=== PATIENT | female | born 1960 | race Two or more races ===

== ENCOUNTER → 2021-05-06 | Outpatient (CLI) | payer MEDICAID, MEDICARE ==
[2021-05-06 10:27] LABS: INR 4.08 (0.9-1.15)
== END | disposition home or self-care (01) ==
LOC: LAB 08:15
PROVIDERS: ATTEND Internal Medicine
DX: I38 Endocarditis, valve unspecified (principal); Z79.01 Long term (current) use of anticoagulants
CPT/HCPCS: 36415; 85610

== ENCOUNTER → 2021-05-23 | Outpatient (CLI) | payer MEDICARE, MEDICAID ==
[2021-05-23 10:15] LABS: INR 4.05 (0.9-1.15)
== END | disposition home or self-care (01) ==
LOC: LAB 09:11
PROVIDERS: ATTEND Internal Medicine
DX: I38 Endocarditis, valve unspecified (principal); Z79.01 Long term (current) use of anticoagulants
CPT/HCPCS: 36415; 85610

== ENCOUNTER 2021-05-28 00:55 | Emergency (ER) | payer MEDICARE, MEDICAID ==
[~2021-05-28] VITALS: Ht 160 cm; Wt 64.9 kg
[2021-05-28 01:45] LABS: Basophils # (auto) 0.1 10 ^3/uL (0-0.2); Basophils % (auto) 0.8 % (0.0-2.0); Eosinophils # (auto) 0.1 10 ^3/uL (0-0.8); Eosinophils % (auto) 1.3 % (0.0-7.0); Hematocrit 41.4 % (36.0-46.0); Lymphocytes # (auto) 2.4 10 ^3/uL (0.4-5.4); Lymphocytes % (auto) 31.1 % (10.0-50.0); Mean Corpuscular Hemoglobin 29.7 pg (28.0-32.0); Mean Corpuscular Hgb Conc. 33.8 g/dL (32.0-36.0); Monocytes # (auto) 0.5 10 ^3/uL (0-1.3); Monocytes % (auto) 6.1 % (0.0-12.0); Neutrophils # (auto) 4.7 10 ^3/uL (1.6-8.6); Neutrophils % (auto) 60.7 % (37.0-80.0); Nucleated Red Blood Cells % 0.2 %; Red Cell Distribution Width 13.8 % (11.8-14.3); White Blood Cell 7.8 10^3/uL (4.4-10.8)
[2021-05-28 01:57] LABS: INR 1.11 (0.9-1.15); Partial Thromboplastin Time 28.2 sec (23.6-33.0)
[2021-05-28 01:58] LABS: Albumin 3.8 g/dL (3.4-5.0); BUN/Creatinine Ratio 21.6; Calcium 8.5 mg/dL (8.5-10.1); Potassium 3.8 mmol/L (3.5-5.1)
[2021-05-28 02:03] LABS: Bilirubin, Total 0.4 mg/dL (0.2-1.0); Total Protein 7.8 g/dL (6.4-8.2)
[2021-05-28] MEDS ORDERED: ACETAMINOPHEN 500 MG TAB PO ONE (04:45)
[2021-05-28 05:02] VITALS: BP 128/59
[2021-05-28 05:11] LABS: Urine Bacteria FEW /hpf (None Seen); Urine Blood Negative /uL (Negative); Urine Mucus FEW (None Seen); Urine WBC 6 /hpf (0 - 5)
== END 2021-05-28 06:15 | disposition home or self-care (01) ==
LOC: ER 00:55
DX: R51.9 Headache, unspecified (principal); Z86.73 Personal history of transient ischemic attack (TIA), and cerebral infarction without residual deficits
CPT/HCPCS: 36415; 70450; 80053; 81001; 84484; 85025; 85610; 85730; 93005

== ENCOUNTER → 2021-06-03 | Outpatient (CLI) | payer MEDICARE, MEDICAID ==
[2021-06-03 07:59] LABS: Basophils # (auto) 0 10 ^3/uL (0-0.2); Basophils % (auto) 0.8 % (0.0-2.0); Eosinophils # (auto) 0.1 10 ^3/uL (0-0.8); Eosinophils % (auto) 1.6 % (0.0-7.0); Hematocrit 40.1 % (36.0-46.0); Hemoglobin 13.7 g/dL (12.2-16.2); Lymphocytes % (auto) 37.9 % (10.0-50.0); Mean Corpuscular Hemoglobin 29.5 pg (28.0-32.0); Mean Corpuscular Volume 86.8 fL (80.0-100.0); Monocytes # (auto) 0.3 10 ^3/uL (0-1.3); Monocytes % (auto) 6.1 % (0.0-12.0); Neutrophils # (auto) 2.9 10 ^3/uL (1.6-8.6); Neutrophils % (auto) 53.6 % (37.0-80.0); Nucleated Red Blood Cells % 0.1 %; Red Blood Cells 4.62 10^6/uL (4.0-5.20); Red Cell Distribution Width 13.6 % (11.8-14.3); White Blood Cell 5.4 10^3/uL (4.4-10.8)
[2021-06-03 08:08] LABS: Urine Bacteria NONE SEEN /hpf (None Seen); Urine Blood Negative /uL (Negative); Urine Mucus FEW (None Seen); Urine Specific Gravity 1.015 (1.001-1.035); Urine WBC 1 /hpf (0 - 5)
[2021-06-03 08:34] LABS: INR 1.75 (0.9-1.15)
[2021-06-03 09:14] LABS: Potassium 4.5 mmol/L (3.5-5.1)
[2021-06-03 09:25] LABS: Albumin 4.1 g/dL (3.4-5.0); BUN/Creatinine Ratio 17.5; Bilirubin, Total 0.6 mg/dL (0.2-1.0); Calcium 9.5 mg/dL (8.5-10.1); Total Protein 8.2 g/dL (6.4-8.2)
== END | disposition home or self-care (01) ==
LOC: LAB 07:24
PROVIDERS: ATTEND Student in an Organized Health Care Education/Training Program
DX: R73.9 Hyperglycemia, unspecified (principal); I10 Essential (primary) hypertension; D68.59 Other primary thrombophilia
CPT/HCPCS: 36415; 80053; 80061; 81001; 83036; 84443; 85025; 85610

== ENCOUNTER → 2021-06-07 | Outpatient (CLI) | payer MEDICARE, MEDICAID | END | disposition home or self-care (01) | LOC: XYW 13:38 | PROVIDERS: ATTEND Internal Medicine | DX: I08.0 Rheumatic disorders of both mitral and aortic valves (principal); I10 Essential (primary) hypertension | CPT/HCPCS: 93306 ==

== ENCOUNTER → 2021-06-15 | Outpatient (CLI) | payer MEDICARE, MEDICAID | END | disposition home or self-care (01) | LOC: XYW 10:04 | PROVIDERS: ATTEND Student in an Organized Health Care Education/Training Program | DX: I65.21 Occlusion and stenosis of right carotid artery (principal); Z86.73 Personal history of transient ischemic attack (TIA), and cerebral infarction without residual deficits | CPT/HCPCS: 93886 ==

== ENCOUNTER → 2021-08-05 | Outpatient (CLI) | payer MEDICARE, MEDICAID ==
[~2021-08-05] MED LIST: ACET-1156 PO; ASCO250T10 PO; CHOL400C15 PO; FERR-20 PO; WARF2TAB49 PO; WARF4TAB33 PO
== END | disposition home or self-care (01) ==
LOC: LAB 08:16
PROVIDERS: ATTEND Student in an Organized Health Care Education/Training Program
DX: M25.40 Effusion, unspecified joint (principal)
CPT/HCPCS: 86038; 86431

== ENCOUNTER 2021-08-12 06:48 | Inpatient (IN) | payer MEDICARE, MEDICAID ==
[2021-08-08 10:33] LABS: Basophils # (auto) 0.1 10 ^3/uL (0-0.2); Basophils % (auto) 1.3 % (0.0-2.0); Eosinophils # (auto) 0.1 10 ^3/uL (0-0.8); Hematocrit 39.3 % (36.0-46.0); Hemoglobin 13.3 g/dL (12.2-16.2); Lymphocytes # (auto) 2.1 10 ^3/uL (0.4-5.4); Lymphocytes % (auto) 34.3 % (10.0-50.0); Mean Corpuscular Hemoglobin 29.1 pg (28.0-32.0); Mean Corpuscular Hgb Conc. 33.9 g/dL (32.0-36.0); Mean Corpuscular Volume 85.8 fL (80.0-100.0); Monocytes # (auto) 0.5 10 ^3/uL (0-1.3); Monocytes % (auto) 7.5 % (0.0-12.0); Neutrophils # (auto) 3.4 10 ^3/uL (1.6-8.6); Neutrophils % (auto) 55.9 % (37.0-80.0); Red Blood Cells 4.58 10^6/uL (4.0-5.20); Red Cell Distribution Width 14.8 % (11.8-14.3)
[2021-08-08 10:51] LABS: Potassium 4.7 mmol/L (3.5-5.1)
[2021-08-08 11:07] LABS: Albumin 3.8 g/dL (3.4-5.0); Bilirubin, Total 0.6 mg/dL (0.2-1.0); Calcium 8.9 mg/dL (8.5-10.1)
[2021-08-08 11:17] LABS: Partial Thromboplastin Time 51.4 sec (23.6-33.0)
[2021-08-08 13:10] LABS: INR 4.6 (0.9-1.15)
[2021-08-10 12:03] LABS: Basophils # (auto) 0.1 10 ^3/uL (0-0.2); Basophils % (auto) 0.8 % (0.0-2.0); Eosinophils # (auto) 0.1 10 ^3/uL (0-0.8); Eosinophils % (auto) 1.4 % (0.0-7.0); Hematocrit 38.5 % (36.0-46.0); Hemoglobin 12.7 g/dL (12.2-16.2); Lymphocytes # (auto) 2.2 10 ^3/uL (0.4-5.4); Lymphocytes % (auto) 34.2 % (10.0-50.0); Mean Corpuscular Hemoglobin 28.4 pg (28.0-32.0); Mean Corpuscular Hgb Conc. 33.1 g/dL (32.0-36.0); Mean Corpuscular Volume 85.8 fL (80.0-100.0); Monocytes # (auto) 0.4 10 ^3/uL (0-1.3); Monocytes % (auto) 5.6 % (0.0-12.0); Neutrophils # (auto) 3.7 10 ^3/uL (1.6-8.6); Nucleated Red Blood Cells % 0.1 %; Red Blood Cells 4.48 10^6/uL (4.0-5.20); White Blood Cell 6.3 10^3/uL (4.4-10.8)
[2021-08-10 12:13] LABS: INR 2.46 (0.9-1.15); Partial Thromboplastin Time 40.4 sec (23.6-33.0)
[2021-08-10 12:34] LABS: Potassium 4.5 mmol/L (3.5-5.1)
[2021-08-10 12:40] LABS: Albumin 3.5 g/dL (3.4-5.0); Calcium 8.8 mg/dL (8.5-10.1)
[2021-08-10 12:43] LABS: Bilirubin, Total 0.6 mg/dL (0.2-1.0); Total Protein 7.3 g/dL (6.4-8.2)
[2021-08-12] VITALS (14 sets, daily range): BP systolic 100–142; BP diastolic 52–74
[~2021-08-12] VITALS: Ht 154.9 cm; Wt 140.0 kg
[2021-08-12] MEDS ORDERED: fentaNYL CITRATE 100 MCG/2 ML VL ONE (07:38)
[2021-08-12] MEDS ORDERED: ANGIOMAX 250 MG VIAL IV ONE (07:38)
[2021-08-12] MEDS ORDERED: HEPARIN IN NS 1000Units/500mL 1,500 ML ONE (07:39)
[2021-08-12] MEDS ORDERED: LIDOCAINE 2%HCL (LOCAL ANESTH.) INJ 10ml MDV ONE (07:39)
[2021-08-12] MEDS ORDERED: SODIUM CHL 0.9% 0 ML ONE (07:39)
[2021-08-12] MEDS ORDERED: IODIXANOL 320MG/ML 100ML BTL IV ONE ×3 (07:42→08:08)
[2021-08-12] MEDS ORDERED: GLYCOPYRROLATE 0.2 MG/ML 1ML VIAL ONE (07:45)
[2021-08-12] MEDS ORDERED: MIDAZOLAM HCL 2MG/2ML 2ml VIAL (1mg/ml) ONE (08:36)
[2021-08-12] MEDS ORDERED: hydrALAZINE HCL 20 MG/ML VL ONE (08:45)
[2021-08-12] MEDS ORDERED: HYDROmorphone HCL 2 MG/ML VL/or syr IV ONE (09:15)
[2021-08-12] MEDS ORDERED: HYDROmorphone HCL 2 MG/ML VL/or syr ONE (09:16)
[2021-08-12] MEDS ORDERED: NITROGLYCERIN 0.4 MG SL TAB SL PRN (10:00)
[2021-08-12] MEDS ORDERED: MORPHINE SULFATE INJ 2 MG/ml SYRG IV PRN (10:00)
[2021-08-12 11:17] LABS: INR 1.32 (0.9-1.15); Partial Thromboplastin Time 30.1 sec (23.6-33.0)
[2021-08-12] MEDS ORDERED: WARFARIN SODIUM 5 MG TAB PO ONE (11:45)
[2021-08-12] MEDS ORDERED: WARF4TAB33 PO ×2 (11:54)
[2021-08-12] MEDS: SODIUM CHLOR 0.9% PF (SALINE LOCK) 10ML VIAL/SYR IV SCH ×2 (14:00→22:00)
[2021-08-12] MEDS: ENOXAPARIN SOD 80 MG/0.8ML SYRINGE SC SCH (21:22)
[2021-08-13] MEDS: SODIUM CHLOR 0.9% PF (SALINE LOCK) 10ML VIAL/SYR IV SCH ×3 (06:25→21:15)
[2021-08-13 07:51] LABS: INR 1.31 (0.9-1.15); Partial Thromboplastin Time 34.2 sec (23.6-33.0)
[2021-08-13 08:10] VITALS: BP 140/72
[2021-08-13 09:00] VITALS: BP 140/72
[2021-08-13] MEDS: ENOXAPARIN SOD 80 MG/0.8ML SYRINGE SC SCH ×2 (09:16→21:15)
[2021-08-13 13:00] VITALS: BP 120/69
[2021-08-13 13:08] LABS: Basophils # (auto) 0.1 10 ^3/uL (0-0.2); Basophils % (auto) 0.8 % (0.0-2.0); Eosinophils # (auto) 0.1 10 ^3/uL (0-0.8); Eosinophils % (auto) 1.2 % (0.0-7.0); Hematocrit 36.3 % (36.0-46.0); Hemoglobin 12.1 g/dL (12.2-16.2); Lymphocytes # (auto) 2.5 10 ^3/uL (0.4-5.4); Lymphocytes % (auto) 35.6 % (10.0-50.0); Mean Corpuscular Hemoglobin 28.7 pg (28.0-32.0); Mean Corpuscular Hgb Conc. 33.2 g/dL (32.0-36.0); Mean Corpuscular Volume 86.3 fL (80.0-100.0); Monocytes # (auto) 0.4 10 ^3/uL (0-1.3); Monocytes % (auto) 6.3 % (0.0-12.0); Neutrophils # (auto) 3.9 10 ^3/uL (1.6-8.6); Neutrophils % (auto) 56.1 % (37.0-80.0); Nucleated Red Blood Cells % 0.1 %; Red Blood Cells 4.21 10^6/uL (4.0-5.20); Red Cell Distribution Width 14.8 % (11.8-14.3)
[2021-08-13 13:11] LABS: Albumin 3.2 g/dL (3.4-5.0); Calcium 8.3 mg/dL (8.5-10.1)
[2021-08-13 13:16] LABS: BUN/Creatinine Ratio 18.9; Bilirubin, Total 0.8 mg/dL (0.2-1.0); Total Protein 6.8 g/dL (6.4-8.2)
[2021-08-13 16:34] LABS: INR 1.35 (0.9-1.15); Partial Thromboplastin Time 34.9 sec (23.6-33.0)
[2021-08-13 17:00] VITALS: BP 155/76
[2021-08-13] MEDS ORDERED: WARFARIN SODIUM 5 MG TAB PO ONE ×2 (17:00→17:33)
[2021-08-13] MEDS ORDERED: WARFARIN SODIUM 2 MG TAB PO SCH (17:00)
[2021-08-13 22:00] VITALS: BP 124/64
[2021-08-14 05:00] VITALS: BP 125/65
[2021-08-14 05:33] LABS: INR 1.54 (0.9-1.15); Partial Thromboplastin Time 39.4 sec (23.6-33.0)
[2021-08-14] MEDS: SODIUM CHLOR 0.9% PF (SALINE LOCK) 10ML VIAL/SYR IV SCH ×3 (06:08→22:16)
[2021-08-14 08:00] VITALS: BP 140/72
[2021-08-14 09:00] VITALS: BP 152/72
[2021-08-14] MEDS: ENOXAPARIN SOD 80 MG/0.8ML SYRINGE SC SCH ×2 (11:52→22:16)
[2021-08-14] MEDS: ACETAMINOPHEN 325 MG TAB PO PRN ×2 (11:53→21:39)
[2021-08-14 17:00] VITALS: BP 136/87
[2021-08-14 22:00] VITALS: BP 158/75
[2021-08-15] VITALS (7 sets, daily range): BP systolic 122–142; BP diastolic 61–78
[2021-08-15] MEDS: SODIUM CHLOR 0.9% PF (SALINE LOCK) 10ML VIAL/SYR IV SCH ×3 (05:53→21:20)
[2021-08-15 06:32] LABS: INR 1.67 (0.9-1.15); Partial Thromboplastin Time 40.8 sec (23.6-33.0)
[2021-08-15] MEDS ORDERED: WARFARIN SODIUM 5 MG TAB PO ONE (10:00)
[2021-08-15] MEDS: ACETAMINOPHEN 325 MG TAB PO PRN (10:01)
[2021-08-15] MEDS: ENOXAPARIN SOD 80 MG/0.8ML SYRINGE SC SCH (10:02)
[2021-08-15] MEDS ORDERED: MORPHINE SULFATE INJ 2 MG/ml SYRG IV ONE (15:30)
[2021-08-15] MEDS: MORPHINE SULFATE INJ 2 MG/ml SYRG IV PRN ×3 (15:35→20:55)
[2021-08-15] MEDS ORDERED: IOHEXOL 350 MG/ML 100ML IJ ONE (16:21)
[2021-08-16] MEDS: ACETAMINOPHEN 325 MG TAB PO PRN (01:12)
[2021-08-16 05:00] VITALS: BP 92/57
[2021-08-16 05:35] LABS: Basophils # (auto) 0 10 ^3/uL (0-0.2); Basophils % (auto) 0.6 % (0.0-2.0); Eosinophils # (auto) 0.1 10 ^3/uL (0-0.8); Eosinophils % (auto) 0.9 % (0.0-7.0); Hematocrit 32.1 % (36.0-46.0); Hemoglobin 10.7 g/dL (12.2-16.2); Lymphocytes # (auto) 2.8 10 ^3/uL (0.4-5.4); Lymphocytes % (auto) 33.6 % (10.0-50.0); Mean Corpuscular Hemoglobin 28.8 pg (28.0-32.0); Mean Corpuscular Hgb Conc. 33.4 g/dL (32.0-36.0); Monocytes # (auto) 0.6 10 ^3/uL (0-1.3); Monocytes % (auto) 6.8 % (0.0-12.0); Neutrophils # (auto) 4.9 10 ^3/uL (1.6-8.6); Neutrophils % (auto) 58.1 % (37.0-80.0); Nucleated Red Blood Cells % 0.1 %; Red Blood Cells 3.73 10^6/uL (4.0-5.20); Red Cell Distribution Width 14.9 % (11.8-14.3); White Blood Cell 8.4 10^3/uL (4.4-10.8)
[2021-08-16 05:51] LABS: BUN/Creatinine Ratio 19.4; Calcium 8.3 mg/dL (8.5-10.1); Potassium 3.9 mmol/L (3.5-5.1)
[2021-08-16 05:58] LABS: INR 1.33 (0.9-1.15); Partial Thromboplastin Time 32.3 sec (23.6-33.0)
[2021-08-16] MEDS: SODIUM CHLOR 0.9% PF (SALINE LOCK) 10ML VIAL/SYR IV SCH ×3 (06:20→21:37)
[2021-08-16 07:30] VITALS: BP 103/60
[2021-08-16] MEDS ORDERED: THROMBIN (BOVINE) 5000 UNIT SOL VIAL TP ONE (07:30)
[2021-08-16] MEDS ORDERED: KETOROLAC TROMETH 30 MG/ML 1ML VIAL ONE (08:09)
[2021-08-16] MEDS ORDERED: HYDROmorphone HCL 2 MG/ML VL/or syr ONE (08:09)
[2021-08-16] MEDS ORDERED: HYDROmorphone HCL 2 MG/ML VL/or syr IV ONE (08:15)
[2021-08-16] MEDS ORDERED: KETOROLAC TROMETH 30 MG/ML 1ML VIAL IV ONE (08:15)
[2021-08-16 09:30] VITALS: BP 135/64
[2021-08-16] MEDS ORDERED: ONDANSETRON HCL 4 MG/2 ML VIAL IV ONE (10:10)
[2021-08-16] MEDS ORDERED: ONDANSETRON HCL 4 MG/2 ML VIAL ONE (10:10)
[2021-08-16 10:30] VITALS: BP 142/58
[2021-08-16] MEDS ORDERED: ceFAZolin 1GM/50ML 100 ML IV ONE (10:55)
[2021-08-16] MEDS ORDERED: fentaNYL CITRATE 100 MCG/2 ML VL ONE (12:05)
[2021-08-16] MEDS ORDERED: MIDAZOLAM HCL 2MG/2ML 2ml VIAL (1mg/ml) ONE (12:06)
[2021-08-16] MEDS ORDERED: PROPOFOL 10 MG/ML 20 ML IV ONE (12:10)
[2021-08-16] MEDS ORDERED: LIDOCAINE 2% (LOCAL ANESTH.) PF 5ml SDV ONE (12:10)
[2021-08-16] MEDS ORDERED: ONDANSETRON HCL 4 MG/2 ML VIAL IV PRN (13:00)
[2021-08-16] MEDS ORDERED: GELATIN 1 SPONGE SIZE 50 TOP ONE (13:04)
[2021-08-16] MEDS ORDERED: THROMBIN (BOVINE) 5000 UNIT SOL VIAL ONE (13:04)
[2021-08-16] MEDS: HYDROmorphone HCL 2 MG/ML VL/or syr IV PRN ×2 (13:51→14:07)
[2021-08-16 16:37] VITALS: BP 146/75
[2021-08-16] MEDS ORDERED: WARFARIN SODIUM 5 MG TAB PO ONE (20:00)
[2021-08-16 21:11] VITALS: BP 101/49
[2021-08-16] MEDS: ATORVASTATIN 20 MG TAB PO SCH (21:37)
[2021-08-16] MEDS: MORPHINE SULFATE INJ 2 MG/ml SYRG IV PRN (21:38)
[2021-08-17] MEDS: MORPHINE SULFATE INJ 2 MG/ml SYRG IV PRN ×3 (04:59→20:11)
[2021-08-17 05:00] VITALS: BP 101/55
[2021-08-17] MEDS: SODIUM CHLOR 0.9% PF (SALINE LOCK) 10ML VIAL/SYR IV SCH ×3 (05:31→21:25)
[2021-08-17 08:10] LABS: Basophils # (auto) 0 10 ^3/uL (0-0.2); Basophils % (auto) 0.5 % (0.0-2.0); Eosinophils # (auto) 0.1 10 ^3/uL (0-0.8); Eosinophils % (auto) 0.9 % (0.0-7.0); Hematocrit 25.6 % (36.0-46.0); Lymphocytes % (auto) 21.7 % (10.0-50.0); Mean Corpuscular Hemoglobin 29.4 pg (28.0-32.0); Mean Corpuscular Hgb Conc. 34.1 g/dL (32.0-36.0); Mean Corpuscular Volume 86.3 fL (80.0-100.0); Monocytes # (auto) 0.6 10 ^3/uL (0-1.3); Monocytes % (auto) 6.6 % (0.0-12.0); Neutrophils # (auto) 6.6 10 ^3/uL (1.6-8.6); Neutrophils % (auto) 70.3 % (37.0-80.0); Red Blood Cells 2.97 10^6/uL (4.0-5.20); Red Cell Distribution Width 14.8 % (11.8-14.3); White Blood Cell 9.4 10^3/uL (4.4-10.8)
[2021-08-17 08:12] LABS: Hemoglobin 8.7 g/dL (12.2-16.2)
[2021-08-17 08:25] LABS: BUN/Creatinine Ratio 17.4; Calcium 7.8 mg/dL (8.5-10.1); Magnesium 2.3 mg/dL (1.6-2.6); Potassium 4.1 mmol/L (3.5-5.1)
[2021-08-17 08:27] LABS: INR 1.19 (0.9-1.15); Partial Thromboplastin Time 29.2 sec (23.6-33.0)
[2021-08-17 09:00] VITALS: BP 101/50
[2021-08-17] MEDS ORDERED: ONDANSETRON HCL 4 MG/2 ML VIAL IV PRN (10:15)
[2021-08-17] MEDS ORDERED: SUCCINYLCHOLINE 20mg/ml 100mg/5ml SYRINGE IV ONE (11:13)
[2021-08-17 13:00] VITALS: BP 97/52
[2021-08-17 17:00] VITALS: BP 106/54
[2021-08-17] MEDS ORDERED: WARFARIN SODIUM 2.5 MG TAB PO ONE (17:00)
[2021-08-17 21:00] VITALS: BP 109/51
[2021-08-17] MEDS: ATORVASTATIN 20 MG TAB PO SCH (21:25)
[2021-08-18 05:00] VITALS: BP 87/47
[2021-08-18 05:37] LABS: Hematocrit 25.2 % (36.0-46.0); Hemoglobin 8.8 g/dL (12.2-16.2)
[2021-08-18 05:54] LABS: INR 1.48 (0.9-1.15); Partial Thromboplastin Time 33.6 sec (23.6-33.0)
[2021-08-18] MEDS: SODIUM CHLOR 0.9% PF (SALINE LOCK) 10ML VIAL/SYR IV SCH ×3 (06:02→22:21)
[2021-08-18 09:00] VITALS: BP 133/58
[2021-08-18 09:25] VITALS: BP 143/64
[2021-08-18] MEDS ORDERED: ENOXAPARIN SOD 80 MG/0.8ML SYRINGE SC SCH (10:05)
[2021-08-18 12:35] VITALS: BP 109/58
[2021-08-18 14:25] LABS: Hematocrit 25.9 % (36.0-46.0); Hemoglobin 8.8 g/dL (12.2-16.2)
[2021-08-18] MEDS ORDERED: WARFARIN SODIUM 2.5 MG TAB PO ONE (17:00)
[2021-08-18 17:06] VITALS: BP 99/55
[2021-08-18 18:16] LABS: Hematocrit 30.1 % (36.0-46.0)
[2021-08-18 22:00] VITALS: BP 107/56
[2021-08-18] MEDS: ATORVASTATIN 20 MG TAB PO SCH (22:21)
[2021-08-19 05:00] VITALS: BP 102/49
[2021-08-19] MEDS: SODIUM CHLOR 0.9% PF (SALINE LOCK) 10ML VIAL/SYR IV SCH ×3 (05:28→22:05)
[2021-08-19 06:54] LABS: Basophils # (auto) 0 10 ^3/uL (0-0.2); Basophils % (auto) 0.6 % (0.0-2.0); Eosinophils # (auto) 0.1 10 ^3/uL (0-0.8); Eosinophils % (auto) 1.6 % (0.0-7.0); Hemoglobin 8.5 g/dL (12.2-16.2); Lymphocytes % (auto) 24.9 % (10.0-50.0); Mean Corpuscular Hemoglobin 29.7 pg (28.0-32.0); Mean Corpuscular Volume 87.3 fL (80.0-100.0); Monocytes # (auto) 0.5 10 ^3/uL (0-1.3); Monocytes % (auto) 6.7 % (0.0-12.0); Neutrophils # (auto) 5.3 10 ^3/uL (1.6-8.6); Neutrophils % (auto) 66.2 % (37.0-80.0); Red Blood Cells 2.86 10^6/uL (4.0-5.20); Red Cell Distribution Width 14.8 % (11.8-14.3)
[2021-08-19 06:55] LABS: INR 1.66 (0.9-1.15); Partial Thromboplastin Time 35.1 sec (23.6-33.0)
[2021-08-19 08:10] VITALS: BP 124/90
[2021-08-19 09:00] VITALS: BP 105/43
[2021-08-19] MEDS ORDERED: ENOXAPARIN SOD 80 MG/0.8ML SYRINGE SC SCH (10:00)
[2021-08-19 12:15] VITALS: BP 107/57
[2021-08-19] MEDS: ACETAMINOPHEN 325 MG TAB PO PRN ×2 (13:43→22:16)
[2021-08-19 17:00] VITALS: BP 103/52
[2021-08-19 22:00] VITALS: BP 109/56
[2021-08-19] MEDS: ATORVASTATIN 20 MG TAB PO SCH (22:05)
[2021-08-20] MEDS: MORPHINE SULFATE INJ 2 MG/ml SYRG IV PRN (03:58)
[2021-08-20 05:00] VITALS: BP 97/48
[2021-08-20 05:44] LABS: Basophils # (auto) 0 10 ^3/uL (0-0.2); Eosinophils # (auto) 0.2 10 ^3/uL (0-0.8); Lymphocytes # (auto) 1.6 10 ^3/uL (0.4-5.4); Mean Corpuscular Hgb Conc. 34.6 g/dL (32.0-36.0); Monocytes # (auto) 0.4 10 ^3/uL (0-1.3); Neutrophils # (auto) 4.1 10 ^3/uL (1.6-8.6); Nucleated Red Blood Cells % 0.1 %; White Blood Cell 6.3 10^3/uL (4.4-10.8)
[2021-08-20 05:46] LABS: Basophils % (auto) 0.5 % (0.0-2.0); Eosinophils % (auto) 2.5 % (0.0-7.0); Hematocrit 23.9 % (36.0-46.0); Hemoglobin 8.2 g/dL (12.2-16.2); Lymphocytes % (auto) 25.3 % (10.0-50.0); Mean Corpuscular Hemoglobin 30.3 pg (28.0-32.0); Mean Corpuscular Volume 87.6 fL (80.0-100.0); Monocytes % (auto) 6.5 % (0.0-12.0); Neutrophils % (auto) 65.2 % (37.0-80.0); Red Blood Cells 2.72 10^6/uL (4.0-5.20); Red Cell Distribution Width 14.5 % (11.8-14.3)
[2021-08-20] MEDS: SODIUM CHLOR 0.9% PF (SALINE LOCK) 10ML VIAL/SYR IV SCH ×2 (05:50→13:15)
[2021-08-20 07:30] VITALS: BP 173/77
[2021-08-20 09:00] VITALS: BP 107/53
[2021-08-20] MEDS: ACETAMINOPHEN 325 MG TAB PO PRN (12:06)
[2021-08-20 12:45] VITALS: BP 115/49
[2021-08-20] MEDS ORDERED: WARFARIN SODIUM 2.5 MG TAB PO ONE (13:16)
[2021-08-20 13:36] VITALS: BP 173/77
== END 2021-08-20 14:30 | disposition home or self-care (01) | DRG 982 ==
LOC: CATH 06:48 → TELE 09:46 → TELE-WESTW 16:36
PROVIDERS: ADMIT Internal Medicine; ATTEND Internal Medicine Nephrology
PROC: 4A023N8 Measurement of Cardiac Sampling and Pressure, Bilateral, Percutaneous Approach (ICD-10-PCS; principal; 2021-08-12)
PROC: B3101ZZ Fluoroscopy of Thoracic Aorta using Low Osmolar Contrast (ICD-10-PCS; 2021-08-12)
PROC: B2111ZZ Fluoroscopy of Multiple Coronary Arteries using Low Osmolar Contrast (ICD-10-PCS; 2021-08-12)
PROC: 04CK0ZZ Extirpation of Matter from Right Femoral Artery, Open Approach (ICD-10-PCS; 2021-08-16)
DX: D68.9 Coagulation defect, unspecified (principal); I97.630 Postprocedural hematoma of a circulatory system organ or structure following a cardiac catheterization; I69.354 Hemiplegia and hemiparesis following cerebral infarction affecting left non-dominant side; T45.515A Adverse effect of anticoagulants, initial encounter; Z95.1 Presence of aortocoronary bypass graft; I65.21 Occlusion and stenosis of right carotid artery; I72.4 Aneurysm of artery of lower extremity; D64.9 Anemia, unspecified; E78.5 Hyperlipidemia, unspecified; I10 Essential (primary) hypertension; Z20.822 Contact with and (suspected) exposure to COVID-19; Z79.01 Long term (current) use of anticoagulants; Z95.2 Presence of prosthetic heart valve; Q24.9 Congenital malformation of heart, unspecified; S70.11XA Contusion of right thigh, initial encounter; X58.XXXA Exposure to other specified factors, initial encounter; Y93.89 Activity, other specified; Y92.238 Other place in hospital as the place of occurrence of the external cause; Y99.8 Other external cause status
CPT/HCPCS: 36415; 70498; 71275; 72192; 75605; 80048; 80053; 80061; 83735; 85014; 85018; 85025; 85610; 85730; 86850; 86900; 86901; 86920; 93460; 93926; 99152; C1751; G0378; J0690; J1885; J2001; J2250; J2405; J2704; Q9967

== ENCOUNTER → 2021-12-06 | Outpatient (CLI) | payer MEDICARE, MEDICAID ==
[~2021-12-06] MED LIST changes: -ASCO250T10 PO; -WARF2TAB49 PO
== END | disposition home or self-care (01) ==
LOC: LAB 09:41
PROVIDERS: ATTEND Internal Medicine
DX: R94.4 Abnormal results of kidney function studies (principal)
CPT/HCPCS: 36415; 82565; 84520

== ENCOUNTER → 2021-12-08 | Outpatient (CLI) | payer MEDICARE, MEDICAID ==
[~2021-12-08] MED LIST changes: +IOHEXOL 350 MG/ML 100ML IJ ONE; +NITROGLYCERIN 0.4 MG SL TAB SL ONE
[2021-12-08 09:30] VITALS: BP 133/69
[2021-12-08 10:43] VITALS: BP 138/60
== END | disposition home or self-care (01) ==
LOC: Rad HDHVI 09:10
PROVIDERS: ATTEND Internal Medicine
DX: I25.10 Atherosclerotic heart disease of native coronary artery without angina pectoris (principal); R07.89 Other chest pain
CPT/HCPCS: 75574; G0463; Q9967

== ENCOUNTER 2022-07-29 09:14 | Emergency (ER) | payer MEDICARE, MEDICAID ==
[~2022-07-29] VITALS: Ht 160 cm; Wt 59.0 kg
[~2022-07-29 09:14] MED LIST changes: -IOHEXOL 350 MG/ML 100ML IJ ONE; -NITROGLYCERIN 0.4 MG SL TAB SL ONE
[2022-07-29 10:05] LABS: Urine Bacteria NONE SEEN /hpf (None Seen); Urine Blood Negative /uL (Negative); Urine Mucus FEW (None Seen); Urine Specific Gravity 1.015 (1.001-1.035); Urine WBC 4 /hpf (0 - 5)
[2022-07-29 10:24] LABS: Basophils # (auto) 0.1 10 ^3/uL (0-0.2); Eosinophils # (auto) 0.1 10 ^3/uL (0-0.8); Hematocrit 37.4 % (36.0-46.0); Hemoglobin 12.1 g/dL (12.2-16.2); Lymphocytes # (auto) 1.8 10 ^3/uL (0.4-5.4); Mean Corpuscular Hgb Conc. 32.4 g/dL (32.0-36.0)
[2022-07-29 10:26] LABS: Eosinophils % (auto) 1.7 % (0.0-7.0); Lymphocytes % (auto) 26.2 % (10.0-50.0); Monocytes # (auto) 0.3 10 ^3/uL (0-1.3); Monocytes % (auto) 4.9 % (0.0-12.0); Neutrophils # (auto) 4.6 10 ^3/uL (1.6-8.6); Neutrophils % (auto) 66.2 % (37.0-80.0); Nucleated Red Blood Cells % 0.1 %; Red Blood Cells 4.85 10^6/uL (4.0-5.20); White Blood Cell 6.9 10^3/uL (4.4-10.8)
[2022-07-29 10:41] LABS: Albumin 3.9 g/dL (3.4-5.0); Calcium 8.7 mg/dL (8.5-10.1); Potassium 4.5 mmol/L (3.5-5.1)
[2022-07-29 10:46] LABS: BUN/Creatinine Ratio 19.8 (10.0-20.0); Bilirubin, Total 0.5 mg/dL (0.2-1.0); Total Protein 7.7 g/dL (6.4-8.2)
[2022-07-29] MEDS ORDERED: cefTRIAXone SOD 1,000 MG VL IM ONE (11:15)
[2022-07-29] MEDS ORDERED: metroNIDAZOLE 500 MG TAB PO ONE (11:15)
[2022-07-29] MEDS ORDERED: METR500T PO (11:16)
[2022-07-29 11:55] VITALS: BP 131/86
== END 2022-07-29 11:58 | disposition home or self-care (01) ==
LOC: ER 09:14
DX: K52.9 Noninfective gastroenteritis and colitis, unspecified (principal); N39.0 Urinary tract infection, site not specified
CPT/HCPCS: 36415; 74176; 80053; 81001; 84484; 85025; 96372; 99285; J0696

== ENCOUNTER → 2022-08-01 | Outpatient (CLI) | payer MEDICARE, MEDICAID ==
[~2022-08-01] MED LIST changes: +METR500T PO
[2022-08-01 07:31] LABS: Basophils # (auto) 0.1 10 ^3/uL (0-0.2); Eosinophils # (auto) 0.2 10 ^3/uL (0-0.8); Mean Corpuscular Volume 76.5 fL (80.0-100.0)
[2022-08-01 07:33] LABS: Eosinophils % (auto) 3.4 % (0.0-7.0); Hematocrit 36.1 % (36.0-46.0); Hemoglobin 11.8 g/dL (12.2-16.2); Lymphocytes # (auto) 2.4 10 ^3/uL (0.4-5.4); Lymphocytes % (auto) 38.8 % (10.0-50.0); Mean Corpuscular Hgb Conc. 32.6 g/dL (32.0-36.0); Monocytes # (auto) 0.4 10 ^3/uL (0-1.3); Monocytes % (auto) 6.5 % (0.0-12.0); Neutrophils # (auto) 3.2 10 ^3/uL (1.6-8.6); Neutrophils % (auto) 50.3 % (37.0-80.0); Red Blood Cells 4.71 10^6/uL (4.0-5.20); Red Cell Distribution Width 17.3 % (11.8-14.3); White Blood Cell 6.3 10^3/uL (4.4-10.8)
[2022-08-01 07:40] LABS: Urine Bacteria NONE SEEN /hpf (None Seen); Urine Blood Negative /uL (Negative); Urine Hyaline Cast FEW /lpf (0 - 2); Urine Mucus FEW (None Seen); Urine Specific Gravity 1.015 (1.001-1.035); Urine WBC 5 /hpf (0 - 5)
[2022-08-01 07:45] LABS: Albumin 3.6 g/dL (3.4-5.0); Potassium 4.9 mmol/L (3.5-5.1)
[2022-08-01 07:53] LABS: BUN/Creatinine Ratio 14.3 (10.0-20.0); Bilirubin, Total 0.4 mg/dL (0.2-1.0); Calcium 9.1 mg/dL (8.5-10.1); Total Protein 7.8 g/dL (6.4-8.2)
== END | disposition home or self-care (01) ==
LOC: LAB 07:03
PROVIDERS: ATTEND Student in an Organized Health Care Education/Training Program
DX: I10 Essential (primary) hypertension (principal); R73.9 Hyperglycemia, unspecified; N39.0 Urinary tract infection, site not specified
CPT/HCPCS: 36415; 80053; 80061; 81001; 83036; 84443; 85025; 87086

== ENCOUNTER → 2022-09-29 | Outpatient (CLI) | payer OTHER, MEDICAID ==
[~2022-09-29] MED LIST changes: -ACET-1156 PO; +ACET-1881 PO; -FERR-20 PO; +FERR325T24 PO; +WARF-112 PO; -WARF4TAB33 PO
[2022-09-29 10:35] LABS: INR 2.76 (0.9-1.15)
== END | disposition home or self-care (01) ==
LOC: LAB 10:03
PROVIDERS: ATTEND Student in an Organized Health Care Education/Training Program
DX: D68.69 Other thrombophilia (principal); Z79.01 Long term (current) use of anticoagulants
CPT/HCPCS: 36415; 85610

== ENCOUNTER 2022-10-03 15:08 | Emergency (ER) | payer OTHER, MEDICAID ==
[~2022-10-03] VITALS: Ht 160 cm; Wt 63.3 kg
[2022-10-03 15:51] LABS: Eosinophils # (auto) 0.1 10 ^3/uL (0-0.8); Eosinophils % (auto) 1.1 % (0.0-7.0); Lymphocytes # (auto) 2.6 10 ^3/uL (0.4-5.4); Monocytes # (auto) 0.3 10 ^3/uL (0-1.3); White Blood Cell 7.1 10^3/uL (4.4-10.8)
[2022-10-03 15:53] LABS: Basophils # (auto) 0 10 ^3/uL (0-0.2); Basophils % (auto) 0.6 % (0.0-2.0); Hematocrit 34.9 % (36.0-46.0); Hemoglobin 11.2 g/dL (12.2-16.2); Lymphocytes % (auto) 36.9 % (10.0-50.0); Mean Corpuscular Hemoglobin 24.4 pg (28.0-32.0); Mean Corpuscular Volume 76.1 fL (80.0-100.0); Monocytes % (auto) 4.9 % (0.0-12.0); Neutrophils % (auto) 56.5 % (37.0-80.0); Nucleated Red Blood Cells % 0.2 %; Red Blood Cells 4.59 10^6/uL (4.0-5.20); Red Cell Distribution Width 18.1 % (11.8-14.3)
[2022-10-03 16:13] LABS: Calcium 8.4 mg/dL (8.5-10.1); Potassium 4.3 mmol/L (3.5-5.1)
[2022-10-03 16:19] LABS: Albumin 3.6 g/dL (3.4-5.0); BUN/Creatinine Ratio 17.6 (10.0-20.0); Bilirubin, Total 0.4 mg/dL (0.2-1.0); Total Protein 7.9 g/dL (6.4-8.2)
[2022-10-03 16:23] LABS: INR 3.03 (0.9-1.15); Partial Thromboplastin Time 41.8 SEC (24.5-34.5)
[2022-10-03] MEDS ORDERED: TRAM50TA2 PO (16:51)
[2022-10-03 17:49] VITALS: BP 136/72
== END 2022-10-03 17:52 | disposition home or self-care (01) ==
LOC: ER 15:08
DX: R51.9 Headache, unspecified (principal); Z79.899 Other long term (current) drug therapy; Z86.73 Personal history of transient ischemic attack (TIA), and cerebral infarction without residual deficits; Z98.890 Other specified postprocedural states; Z79.01 Long term (current) use of anticoagulants
CPT/HCPCS: 36415; 70450; 80053; 85025; 85610; 85730; 93005

== ENCOUNTER → 2023-01-02 | Outpatient (CLI) | payer MEDICAID, OTHER ==
[~2023-01-02] MED LIST changes: +TRAM50TA2 PO
== END | disposition home or self-care (01) ==
LOC: RT 10:39
PROVIDERS: ATTEND Internal Medicine Pulmonary Disease
DX: J45.40 Moderate persistent asthma, uncomplicated (principal); R05.3 Chronic cough; R06.09 Other forms of dyspnea
CPT/HCPCS: 94060; 94727; 94729

== ENCOUNTER 2023-04-07 18:50 | Emergency (ER) | payer OTHER, MEDICAID ==
[~2023-04-07] VITALS: Ht 160 cm; Wt 69.0 kg
[2023-04-07] MEDS ORDERED: ONDANSETRON ODT 4 MG TAB PO ONE (19:45)
[2023-04-07] MEDS ORDERED: MORPHINE SULFATE 4 MG/ML SYR/VIAL IM ONE (19:45)
[2023-04-07 20:19] VITALS: BP 136/86; PULSE 80; RESP 20; TEMP 99.6; O2SAT 98
[2023-04-07] MEDS ORDERED: HYDR-4902 PO (21:01)
== END 2023-04-07 21:20 | disposition home or self-care (01) ==
LOC: ER 18:50
DX: M25.462 Effusion, left knee (principal); Z86.73 Personal history of transient ischemic attack (TIA), and cerebral infarction without residual deficits; Z98.890 Other specified postprocedural states; Z79.899 Other long term (current) drug therapy
CPT/HCPCS: 73562; 96372; 99283; J2270; Q0162

== ENCOUNTER → 2023-12-24 | Outpatient (CLI) | payer OTHER ==
[~2023-12-24] MED LIST changes: +HYDR-4902 PO
[2023-12-24 08:44] LABS: Urine Bacteria None Seen /hpf (None Seen)
[2023-12-24 08:59] LABS: Basophils # (auto) 0.1 10 ^3/uL (0-0.2); Eosinophils # (auto) 0.1 10 ^3/uL (0-0.8); Eosinophils % (auto) 1.5 % (0.0-7.0); Monocytes # (auto) 0.3 10 ^3/uL (0-1.3); Neutrophils # (auto) 3.4 10 ^3/uL (1.6-8.6); Red Cell Distribution Width 21.2 % (11.8-14.3); White Blood Cell 5.6 10^3/uL (4.4-10.8)
[2023-12-24 09:03] LABS: Basophils % (auto) 1.1 % (0.0-2.0); Hematocrit 30.6 % (36.0-46.0); Hemoglobin 9.2 g/dL (12.2-16.2); Lymphocytes # (auto) 1.7 10 ^3/uL (0.4-5.4); Lymphocytes % (auto) 30.8 % (10.0-50.0); Mean Corpuscular Hemoglobin 20.1 pg (28.0-32.0); Mean Corpuscular Hgb Conc. 30.1 g/dL (32.0-36.0); Mean Corpuscular Volume 66.8 fL (80.0-100.0); Monocytes % (auto) 5.7 % (0.0-12.0); Neutrophils % (auto) 60.9 % (37.0-80.0); Platelet Count (auto) 227 10^3/uL (140-450); Red Blood Cells 4.57 10^6/uL (4.0-5.20)
[2023-12-24 09:15] LABS: Alanine Aminotransferase 15 U/L (7-40); Albumin 4.4 g/dL (3.2-4.8); Alkaline Phosphatase 97 U/L (46-116); Anion Gap 7 (5-15); Aspartate Aminotransferase 23 U/L (13-40); BUN/Creatinine Ratio 16.8 (10.0-20.0); Blood Urea Nitrogen 17 mg/dL (9-23); Calcium 9.4 mg/dL (8.7-10.4); Carbon Dioxide 25 mmol/L (20-31); Chloride 110 mmol/L (98-107); Glucose 91 mg/dL (74-106); Potassium 4.4 mmol/L (3.5-5.1); Sodium 142 mmol/L (136-145)
[2023-12-24 09:16] LABS: Bilirubin, Total 0.5 mg/dL (0.2-1.0); Total Protein 7.4 g/dL (5.7-8.2)
[2023-12-24 09:17] LABS: Urine Blood TRACE /uL (Negative); Urine Clarity Clear (Clear); Urine Color Light-Yellow (Yellow); Urine Protein, UAD Negative (Negative); Urine Specific Gravity 1.014 (1.001-1.035); Urine Urobilinogen Normal (Negative); Urine WBC 6 /hpf (0 - 5); Urine pH 5.5 (5.0-9.0)
== END | disposition home or self-care (01) ==
LOC: LAB 08:20
PROVIDERS: ATTEND Student in an Organized Health Care Education/Training Program
DX: I10 Essential (primary) hypertension (principal); D64.9 Anemia, unspecified; E55.9 Vitamin D deficiency, unspecified; R73.9 Hyperglycemia, unspecified
CPT/HCPCS: 36415; 80053; 81001; 82306; 82607; 83036; 84443; 85025

== ENCOUNTER → 2024-01-25 | Outpatient (CLI) | payer OTHER ==
[2024-01-25 09:30] LABS: Basophils # (auto) 0 10 ^3/uL (0-0.2); Eosinophils # (auto) 0.1 10 ^3/uL (0-0.8); Hemoglobin 11.8 g/dL (12.2-16.2)
[2024-01-25 09:33] LABS: Basophils % (auto) 0.7 % (0.0-2.0); Eosinophils % (auto) 1.1 % (0.0-7.0); Hematocrit 37.2 % (36.0-46.0); Lymphocytes # (auto) 1.7 10 ^3/uL (0.4-5.4); Lymphocytes % (auto) 28.4 % (10.0-50.0); Mean Corpuscular Hemoglobin 22.3 pg (28.0-32.0); Mean Corpuscular Hgb Conc. 31.7 g/dL (32.0-36.0); Mean Corpuscular Volume 70.2 fL (80.0-100.0); Monocytes # (auto) 0.4 10 ^3/uL (0-1.3); Monocytes % (auto) 6.9 % (0.0-12.0); Neutrophils # (auto) 3.7 10 ^3/uL (1.6-8.6); Neutrophils % (auto) 62.9 % (37.0-80.0); Platelet Count (auto) 230 10^3/uL (140-450); White Blood Cell 5.9 10^3/uL (4.4-10.8)
[2024-01-25 09:34] LABS: Red Cell Distribution Width 26.7 % (11.8-14.3)
[2024-01-25 09:57] LABS: Urine Bacteria FEW /hpf (None Seen); Urine Blood TRACE /uL (Negative); Urine Clarity Clear (Clear); Urine Color Light-Yellow (Yellow); Urine Hyaline Cast FEW /lpf (0 - 2); Urine Mucus FEW (None Seen); Urine Protein, UAD Negative (Negative); Urine Specific Gravity 1.015 (1.001-1.035); Urine Urobilinogen Normal (Negative); Urine WBC 6 /hpf (0 - 5); Urine pH 5.5 (5.0-9.0)
[2024-01-25 10:06] LABS: Alanine Aminotransferase 19 U/L (7-40); Albumin 4.3 g/dL (3.2-4.8); Alkaline Phosphatase 97 U/L (46-116); Anion Gap 6 (5-15); BUN/Creatinine Ratio 15.1 (10.0-20.0); Bilirubin, Total 0.7 mg/dL (0.2-1.0); Blood Urea Nitrogen 16 mg/dL (9-23); Calcium 9.7 mg/dL (8.7-10.4); Carbon Dioxide 28 mmol/L (20-31); Chloride 107 mmol/L (98-107); Cholesterol 168 mg/dL (< 200); Glucose 96 mg/dL (74-106); HDL Cholesterol 51 mg/dL (40-59); LDL Cholesterol 62 mg/dL (< 100); Potassium 4.8 mmol/L (3.5-5.1); Sodium 141 mmol/L (136-145); Total Protein 7.4 g/dL (5.7-8.2); Triglycerides 339 mg/dL (< 150)
[2024-01-25 10:19] LABS: Aspartate Aminotransferase 25 U/L (13-40)
[2024-01-25 10:36] LABS: Ferritin 16.4 ng/mL (10-291)
[2024-01-25 10:46] LABS: % Iron Saturation 10.1 % (15-50)
== END | disposition home or self-care (01) ==
LOC: LAB 09:08
PROVIDERS: ATTEND Student in an Organized Health Care Education/Training Program
DX: I10 Essential (primary) hypertension (principal); D50.9 Iron deficiency anemia, unspecified; R73.9 Hyperglycemia, unspecified; E53.8 Deficiency of other specified B group vitamins
CPT/HCPCS: 36415; 80053; 80061; 81001; 82607; 82728; 83036; 83540; 83550; 84443; 85025

== ENCOUNTER 2024-04-14 11:15 | Emergency (ER) | payer OTHER ==
[~2024-04-14] VITALS: Ht 160 cm; Wt 66.0 kg
[2024-04-14 11:30] VITALS: BP 140/73; PULSE 82; RESP 20; TEMP 97.2; O2SAT 95
[2024-04-14] MEDS ORDERED: AUG875T PO (13:18)
[2024-04-14] MEDS ORDERED: BENZ100C97 PO (13:18)
[2024-04-14] MEDS ORDERED: PROM1SOL4 PO (13:18)
[2024-04-14] MEDS ORDERED: PSEU120T2 PO (13:18)
[2024-04-14] MEDS ORDERED: OFL50TS OT (13:18)
--- NOTE | 2024-04-14 13:18 | ED.PDOC ---
Eye-HPI HPI Comments [age] old female presents with a chief complaint of perforated eardrum to the right ear. Possible cause recent air travel to [place] occurred during the plane rated Tried medications Denies blunt trauma (hand blow to the ear, fall, direct hit) Denies penetrating trauma (Q-tip use, match-stick, gunshot wound, welding spark) Denies ear trauma Denies barotrauma Denies blast injury Denies scuba diving Denies hearing loss Denies persistent ringing in the ear Denies fever chills night sweats unintentional weight loss Denies nausea vomiting severe headache or recent vision changes Chief Complaint: Flu like Time Seen by MD: 11:48 Primary Care Provider: FATEMEH Reviewed Notes: Nurses Notes, Medications, Allergies Allergies: Coded Allergies: NO KNOWN ALLERGIES (Unverified , 08/08/21) Home Meds Active Scripts Pseudoephedrine (Sudafed 12 Hour) 120 Mg Tab, 1 TAB PO BID for 10 Days, #20 TAB 0 Refills Prov:FUNMI BUTLER MEASURER MACHINE 04/14/24 Promethazine-Dm (Promethazine Dm 6.25-15 mg/5Ml) 1 Coty Coty, 5 ML PO TID for 10 Days, #150 ML 0 Refills Prov:FUNMI BUT[employer] MEASURER MACHINE 04/14/24 Benzonatate (Benzonatate) 100 Mg Cap, 1 CAP PO TID for 10 Days, #30 CAP 0 Refills Prov:FUNMI BUTLER MEASURER MACHINE 04/14/24 Amoxicillin & Pot Clavulanate (AUGMENTIN TABLET) 875 Mg Tb, 875 MG PO BID for 7 Days, #14 TAB 0 Refills Prov:FUNMI [employer] MEASURER MACHINE 04/14/24 Ofloxacin (Otic) (FLOXIN OTIC) [address], 10 DROP OT DAILY for 10 Days, #5 ML 0 Refills Prov:FUNMI [employer] MEASURER MACHINE 04/14/24 Hydrocodone-Acetaminophen (Hydrocodone Bitartrate/AC 5-325 mg) 1 Tab Tab, 1 TAB PO Q4HP PRN, #15 TAB Prov:SHITAL VELASCO PAC 04/07/23 Tramadol Hcl (Tramadol Hcl) 50 Mg Tab, 50 MG PO Q6HP PRN for 5 Days, #20 TAB Prov:JACQUELINE ABRAHAM MD 10/03/22 Metronidazole (Flagyl) 500 Mg Tab, 500 MG PO TID for 7 Days, #21 TAB Prov:ISAC RANDHAWA MD 07/29/22 Reported Medications Warfarin Sodium (Warfarin Sodium) 4 Mg Tab, 6 MG PO EOD for RHEUMATIC AORTIC STENOSIS Takes every MON, WED, FRI 08/12/21 Warfarin Sodium (Warfarin Sodium) 4 Mg Tab, 4 MG PO EOD for RHEUMATIC AORTIC STENOSIS Takes every SUN, TUE, THUR, SAT 08/08/21 Cholecalciferol (VITAMIN D3) 400 Unit Cap, 1 CAP PO DAILY for SUPPLEMENT 08/08/21 Ferrous Sulfate (Ferrous Sulfate) 325 Mg Tab, 1 TAB PO DAILY for SUPPLEMENT 08/08/21 Acetaminophen (Acetaminophen) 325 Mg Tab, 1-2 TAB PO Q6HPRN PRN for MILD PAIN (1-3 PAIN SCALE) 08/08/21 Information Source: Patient Mode of Arrival: Ambulatory Past Medical History PAST MEDICAL HISTORY: CVA, UTI'S Surgical History: CABG TRAFFIC CONTROL SPECIALIST History: No Pertinent TRAFFIC CONTROL SPECIALIST History Family History Family History: Unknown Social History Smoker: Non-Smoker Alcohol: Denies ETOH Use Drugs: Denies Drug Use Lives In: Home All Other Systems: Reviewed and Negative (Per HPI) Physical Exam General Appearance: No Apparent Distress, Normal HEENT: Normal ENT Inspection, Pharynx Normal, TM Abnormal (R) (No pre or post auricular erythema, lymphadenopathy, tenderness to palpation. No pain to the tragus. Canal is clear minimal 1-2mm perforation to the TM. Hearing intact.) Neck: Full Range of Motion, Non-Tender, Normal, Normal Inspection Respiratory: Chest Non-Tender, Lungs Clear, No Accessory Muscle Use, No R espiratory Distress, Normal Breath Sounds Cardiovascular: No Edema, No JVD, No Murmur, No Gallop, Normal Peripheral Pulses, Regular Rate/Rhythm Breast Exam: Deferred Gastrointestinal: No Organomegaly, Non Tender, No Pulsatile Mass, Normal Bowel Sounds, Soft Genitalia: Deferred Pelvic: Deferred Rectal: Deferred Extremities: No calf tenderness, Normal capillary refill, Normal inspection, Normal range of motion, Non-tender, No pedal edema Musculoskeletal : Apperance: Normal Neurologic: Alert, No Motor Deficits, Normal Affect, Normal Mood, No Sensory Deficits Cerebellar Function: Normal Reflexes: Normal Skin: Dry, Normal Color, Warm Lymphatic: No Adenopathy Was a procedure done? Was a procedure done?: No EENT DIFF Eye: Other Ear: Abrasion, Cerumen Impaction, Foreign Body, Otitis Externa, Barotrauma, Otitis Media, Perforation X-Ray, Labs, Meds, VS Vital Signs Date Time Temp Pulse Resp B/P (MAP) Pulse Ox O2 Delivery O2 Flow Rate FiO2 04/14/24 11:30 82 20 95 Room Air 04/14/24 11:30 97.2 82 20 140/73 (95) 95 97.2 04/14/24 11:30 97.2 82 20 140/73 (95) 95 X-Ray, Labs, Meds, VS Comment 63 year F presents to the ED for ear pain. Differentials considered but not limited to bullous myringitis, eustachian tube dysfunction, cholesteatoma, mastoiditis, meningitis. Exam and history are most consistent with perforation to the TM No diabetes, immunosuppression. Rx: ABx. Patient is stable for discharge at this time. External notes reviewed. Test results and diagnostic imaging interpreted. All diagnostic findings, discharge care, education and instructions provided Follow-up with PCP in 2 to 3 days Patient verbalized understanding and agreed to treatment plan Vital signs stable, afebrile, no acute distress noted Patient ambulatory with strong steady gait Advised to return precautions for any new or worsening symptoms, return to ER immediately for re-evaluation Patient is aware that the purpose of this visit was for an acute medical zac rgency requiring emergent stabilization. Chronic conditions, including malignancies have not been ruled out. Patient is instructed to follow up with PCP as directed and discharge instructions for continued care and workup. If unable to arrange follow-up, patient is to return to the emergency department for reassessment. Patient (parent or legal guardian if applicable) was given verbal and written discharge instructions and acknowledges understanding. Time of 1ST Reevaluation: 13:00 Reevaluation 1ST: Improved Patient Education/Counseling: Diagnosis, Treatment Family Education/Counseling: Diagnosis, Treatment Departure 1 Departure Time of Disposition: 13:14 Impression: Primary Impression: Perforated ear drum Qualified Codes: H72.91 - Unspecified perforation of tympanic membrane, right ear Additional Impression: Cough Qualified Codes: R05.1 - Acute cough Disposition: HOME / SELF CARE / HOMELESS Condition: Stable e-Prescriptions Pseudoephedrine (Sudafed 12 Hour) 120 Mg Tab 1 TAB PO BID for 10 Days, #20 TAB 0 Refills Prov: FUNMI [employer] MEASURER MACHINE 04/14/24 Promethazine-Dm (Promethazine Dm 6.25-15 mg/5Ml) 1 Coty Coty 5 ML PO TID for 10 Days, #150 ML 0 Refills Prov: FUNMI BUTLER MEASURER MACHINE 04/14/24 Benzonatate (Benzonatate) 100 Mg Cap 1 CAP PO TID for 10 Days, #30 CAP 0 Refills Prov: FUNMI BUTLER MEASURER MACHINE 04/14/24 Amoxicillin & Pot Clavulanate (AUGMENTIN TABLET) 875 Mg Tb 875 MG PO BID for 7 Days, #14 TAB 0 Refills Prov: FUNMI BUTLER MEASURER MACHINE 04/14/24 Ofloxacin (Otic) (FLOXIN OTIC) [address] 10 DROP OT DAILY for 10 Days, #5 ML 0 Refills Prov: FUNMI BUTLER MEASURER MACHINE 04/14/24 Discharged With: Self Critical Care Note Critical Care Time?: No Stability Stability form required: No Heart Score Heart Score: Heart Score Response (Comments) Value History N/A 0 EKG N/A 0 Age N/A 0 Risk Factors N/A 0 Troponin N/A 0 Total 0 FUNMI [employer]ER MEASURER MACHINE Apr 14, 2024 13:18
== END 2024-04-14 13:18 | disposition home or self-care (01) ==
LOC: ER 11:15
DX: H72.91 Unspecified perforation of tympanic membrane, right ear (principal); R05.9 Cough, unspecified; Z79.899 Other long term (current) drug therapy; Z86.73 Personal history of transient ischemic attack (TIA), and cerebral infarction without residual deficits; Z98.890 Other specified postprocedural states

== ENCOUNTER → 2024-05-06 | Outpatient (CLI) | payer OTHER ==
[~2024-05-06] MED LIST changes: +AUG875T PO; +BENZ100C97 PO; +OFL50TS OT; +PROM1SOL4 PO; +PSEU120T2 PO
[2024-05-06 09:20] LABS: Urine Bacteria None Seen /hpf (None Seen)
[2024-05-06 09:56] LABS: Basophils # (auto) 0 10 ^3/uL (0-0.2); Basophils % (auto) 0.9 % (0.0-2.0); Eosinophils # (auto) 0.1 10 ^3/uL (0-0.8); Eosinophils % (auto) 1.8 % (0.0-7.0); Hematocrit 42.2 % (36.0-46.0); Lymphocytes # (auto) 1.9 10 ^3/uL (0.4-5.4); Lymphocytes % (auto) 33.9 % (10.0-50.0); Mean Corpuscular Hgb Conc. 33.2 g/dL (32.0-36.0); Mean Corpuscular Volume 84.4 fL (80.0-100.0); Monocytes # (auto) 0.3 10 ^3/uL (0-1.3); Monocytes % (auto) 5.9 % (0.0-12.0); Neutrophils # (auto) 3.2 10 ^3/uL (1.6-8.6); Neutrophils % (auto) 57.5 % (37.0-80.0); Nucleated Red Blood Cells % 0.1 %; Platelet Count (auto) 197 10^3/uL (140-450); Red Cell Distribution Width 16.6 % (11.8-14.3); White Blood Cell 5.6 10^3/uL (4.4-10.8)
[2024-05-06 10:04] LABS: Urine Blood TRACE /uL (Negative); Urine Clarity Clear (Clear); Urine Color Light-Yellow (Yellow); Urine Mucus FEW (None Seen); Urine Protein, UAD Negative (Negative); Urine Specific Gravity 1.015 (1.001-1.035); Urine Squamous Epithelial Cell FEW /hpf (<5); Urine Urobilinogen Normal (Negative); Urine WBC 9 /HPF (0-5); Urine pH 5.5 (5.0-9.0)
[2024-05-06 11:57] LABS: Alanine Aminotransferase 19 U/L (7-40); Anion Gap 7 (5-15); Calcium 10.2 mg/dL (8.7-10.4); Carbon Dioxide 26 mmol/L (20-31); Potassium 4.5 mmol/L (3.5-5.1); Sodium 141 mmol/L (136-145)
[2024-05-06 11:58] LABS: Albumin 4.6 g/dL (3.2-4.8)
[2024-05-06 11:59] LABS: BUN/Creatinine Ratio 20.8 (10.0-20.0); Blood Urea Nitrogen 20 mg/dL (9-23); Glucose 91 mg/dL (74-106)
[2024-05-06 12:01] LABS: Bilirubin, Total 0.6 mg/dL (0.2-1.0); Total Protein 7.5 g/dL (5.7-8.2)
[2024-05-06 12:12] LABS: Aspartate Aminotransferase 26 U/L (13-40)
[2024-05-06 12:13] LABS: Platelet Estimate Adequate
[2024-05-06 12:31] LABS: Alkaline Phosphatase 93 U/L (46-116)
[2024-05-06 12:32] LABS: Chloride 108 mmol/L (98-107)
[2024-05-07 12:17] LABS: LDL Cholesterol 83 mg/dL (< 100)
[2024-05-07 12:18] LABS: Cholesterol 170 mg/dL (< 200); HDL Cholesterol 53 mg/dL (40-59)
[2024-05-07 12:25] LABS: Triglycerides 246 mg/dL (< 150)
== END | disposition home or self-care (01) ==
LOC: LAB 09:00
PROVIDERS: ATTEND Student in an Organized Health Care Education/Training Program
DX: R73.9 Hyperglycemia, unspecified (principal); R03.0 Elevated blood-pressure reading, without diagnosis of hypertension
CPT/HCPCS: 36415; 80053; 80061; 81001; 83036; 84443; 85025

== ENCOUNTER → 2024-09-25 | Outpatient (CLI) | payer OTHER ==
[2024-09-25 08:31] LABS: INR 2.79 (0.9-1.15); Prothrombin Time 26.7 sec (9.3-11.8)
== END | disposition home or self-care (01) ==
LOC: LAB 08:00
PROVIDERS: ATTEND Physician Assistant
DX: D68.69 Other thrombophilia (principal); Z95.2 Presence of prosthetic heart valve
CPT/HCPCS: 36415; 85610

== ENCOUNTER 2024-10-07 07:30 | Outpatient (CLI) | payer OTHER ==
[2024-10-07 08:23] LABS: Hematocrit 40.0 % (36.0-46.0); Hemoglobin 13.3 g/dL (12.2-16.2); Mean Corpuscular Hemoglobin 28.7 pg (28.0-32.0); Mean Corpuscular Volume 86.4 fL (80.0-100.0); Nucleated Red Blood Cells % 0.0 %
[2024-10-07 08:45] LABS: Alanine Aminotransferase 32 U/L (7-40); Albumin 4.6 g/dL (3.2-4.8); Alkaline Phosphatase 92 U/L (46-116); Anion Gap 9 (5-15); BUN/Creatinine Ratio 20.0 (10.0-20.0); Bilirubin, Total 1.0 mg/dL (0.2-1.0); Blood Urea Nitrogen 21 mg/dL (9-23); Calcium 9.9 mg/dL (8.7-10.4); Carbon Dioxide 24 mmol/L (20-31); Cholesterol 108 mg/dL (< 200); Glucose 89 mg/dL (74-106); HDL Cholesterol 52 mg/dL (40-59); Potassium 4.6 mmol/L (3.5-5.1); Sodium 143 mmol/L (136-145); Total Protein 7.4 g/dL (5.7-8.2); Triglycerides 109 mg/dL (< 150)
[2024-10-07 08:46] LABS: Chloride 110 mmol/L (98-107)
[2024-10-07 09:05] LABS: Free T4 (Free Thyroxine) 1.0 ng/dL (0.89-1.76)
== END 2024-10-07 17:00 | disposition home or self-care (01) ==
LOC: LAB 07:30
PROVIDERS: ATTEND Internal Medicine
DX: Z95.2 Presence of prosthetic heart valve (principal); Z79.01 Long term (current) use of anticoagulants
CPT/HCPCS: 36415; 80053; 80061; 84439; 84443; 84480; 85025

== ENCOUNTER → 2024-10-20 | Outpatient (CLI) | payer OTHER ==
[2024-10-20] MEDS: REGADENOSON 0.4 MG/5 ML SYRG IV ONE ×2 (10:02→10:14)
--- NOTE | 2024-10-20 16:14 | DVHSR ---
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 HR Resting HR: 59 bpmMax Heart Rate (APMHR): 156.221152 bpm Max HR Achieved: 96 bpmTarget HR (85% APMHR): 132.054965 bpm % of APMHR: 61.54 Recovery HR: 75 bpm BP Resting BP: 130/63 mmHg Recovery BP: 117/55 mmHg ECG Resting ECG: Clear Clinical Reason for Termination: Completed protocol Stress ECG Conclusion lvef 68% normal pefusion scan no ischemia NM EXAM: Myocardial Perfusion REST/STRESS Imaging Protocol: Rest Tc-99m/Stress Tc-99m 1 day Resting Data Rest SPECT myocardial perfusion imaging was performed in supine position 60 minutes following the int ravenous injection of 11.0 mCi of Tc-99m Sestamibi. Time of rest injection: 08:48 Date: 10/20/2024 Time of rest imagin:48 Date: 10/20/2024 Administration Route: IV Administration Site: Left Arm Pharmacologic Stress Pharmacologic stress test was performed by injecting Regadenoson 0.4 mg IV push followed by the intra venous injection of 33.0 mCi of Tc-99m Sestamibi. Time of stress injection: 10:08 Date: 10/20/2024 Time of stress imagin:08 Date: 10/20/2024 Administration Route: IV Administration Site: Left Arm Gated Stress SPECT was performed 60 minutes after stress injection. The images were gated to evaluate regional wall motion and calculate left ventricular ejection fracti on. Stress only was performed in the Supine position. Nuclear Conclusion Nuclear Findings: negative for ischemia lvef 68% normal pefusion scan no ischemia
== END | disposition home or self-care (01) ==
LOC: XYW 08:19
PROVIDERS: ATTEND Internal Medicine
DX: R06.02 Shortness of breath (principal); R06.09 Other forms of dyspnea; D68.69 Other thrombophilia; R00.2 Palpitations; I65.23 Occlusion and stenosis of bilateral carotid arteries; M19.90 Unspecified osteoarthritis, unspecified site; J45.909 Unspecified asthma, uncomplicated; Z95.2 Presence of prosthetic heart valve; Z95.1 Presence of aortocoronary bypass graft
CPT/HCPCS: 78452; 93017; A9500; J2785

== ENCOUNTER 2025-01-19 09:35 | Outpatient (CLI) | payer OTHER ==
[2025-01-19 10:18] LABS: INR 2.96 (0.9-1.15); Prothrombin Time 28.2 sec (9.3-11.8)
== END 2025-01-19 17:00 | disposition home or self-care (01) ==
LOC: LAB 09:35
PROVIDERS: ATTEND Physician Assistant
DX: D68.69 Other thrombophilia (principal); Z95.2 Presence of prosthetic heart valve
CPT/HCPCS: 36415; 85610

== ENCOUNTER 2025-01-30 09:41 | Outpatient (CLI) | payer OTHER, MEDICAID ==
[2025-01-30 10:25] LABS: Partial Thromboplastin Time 60.3 SEC (24.5-34.5)
[2025-01-30 11:10] LABS: INR > 8.0 (0.9-1.15)
== END 2025-01-30 17:00 | disposition home or self-care (01) ==
LOC: LAB 09:41
PROVIDERS: ATTEND Physician Assistant
DX: D68.69 Other thrombophilia (principal)
CPT/HCPCS: 36415; 85610; 85730

== ENCOUNTER → 2025-02-06 | Outpatient (CLI) | payer MEDICARE, MEDICAID ==
[2025-02-06 10:21] LABS: INR 1.98 (0.9-1.15); Prothrombin Time 19.6 sec (9.3-11.8)
== END | disposition home or self-care (01) ==
LOC: LAB 09:46
PROVIDERS: ATTEND Physician Assistant
DX: D68.69 Other thrombophilia (principal); Z79.01 Long term (current) use of anticoagulants
CPT/HCPCS: 36415; 85610